=== PATIENT | female | born 1960 | race Caucasian/White ===

== ENCOUNTER → 2021-08-14 | Outpatient (CLI) | payer OTHER | LOC: KOH-I 10:58 → EDBD 10:58 → KOH-I 11:00 | DX: Z01.818 Encounter for other preprocedural examination (principal); S42.251A Displaced fracture of greater tuberosity of right humerus, initial encounter for closed fracture; W19.XXXA Unspecified fall, initial encounter | CPT/HCPCS: 73200 ==